=== PATIENT | female | born 1955 | race Caucasian/White ===

== ENCOUNTER → 2023-07-31 15:57 | Outpatient (REF) | payer OTHER, SELFPAY | LOC: MRI 3T 15:57 | PROVIDERS: ATTENDING PHYSICIAN Surgery; FAMILY PHYSICIAN Family Medicine | DX: N60.91 Unspecified benign mammary dysplasia of right breast (principal) | CPT/HCPCS: 77049; A9585 ==

== ENCOUNTER → 2023-12-07 12:54 | Outpatient (REF) | payer OTHER, SELFPAY | LOC: WDC 12:54 | PROVIDERS: ATTENDING PHYSICIAN Family Medicine | DX: Z12.31 Encounter for screening mammogram for malignant neoplasm of breast (principal); Z80.3 Family history of malignant neoplasm of breast | CPT/HCPCS: 77063; 77067 ==

== ENCOUNTER → 2024-12-07 13:30 | Outpatient (REF) | payer OTHER, SELFPAY | LOC: WDC 13:30 | PROVIDERS: ATTENDING PHYSICIAN Family Medicine | DX: Z12.31 Encounter for screening mammogram for malignant neoplasm of breast (principal) | CPT/HCPCS: 77063; 77067 ==